=== PATIENT | female | born 1980 ===

== ENCOUNTER 2018-01-03 09:20 | Day surgery (SDC) | payer OTHER ==
[2017-12-31 13:39] VITALS: BMI 20.5
[2018-01-03] MEDS ORDERED: ACETIC ACID 3% 30 ML LIQUID MC ONE (09:51)
[2018-01-03] MEDS ORDERED: Strong Iodine Topical Sol. 5%-10% ONE (09:51)
[2018-01-03] MEDS ORDERED: cefOXitin IV 1 gm in Dextrose 0 GM/0 ML BAG IVPB ONE (09:52)
[2018-01-03] MEDS ORDERED: Ferric Subsulfate Sol(60 mL) ONE (09:52)
[2018-01-03 09:59] VITALS: RESP 18
[2018-01-03 10:15] LABS: MEAN CELL VOLUME 89.7 fl (81.0-99.0); MEAN CORPUSCULAR HGB CONC 33.4 g/dL (33.0-37.0); RBC 4.35 Mil/uL (3.80-5.20); RED CELL DISTRIBUTION WIDTH 13.2 % (11.5-14.5); WHITE BLOOD COUNT 7.1 K/uL (4.8-10.8)
[2018-01-03] MEDS ORDERED: Propofol 10 mg/ml Inj (20 ML) ONE ×2 (10:17→11:05)
[2018-01-03] MEDS ORDERED: Midazolam 2 MG/2 ML VIAL ONE (10:17)
[2018-01-03] MEDS ORDERED: Succinylcholine 200 mg/10 ml Inj IV ONE (10:17)
[2018-01-03] MEDS ORDERED: Rocuronium 10 mg/ml (5 ml) ONE (10:17)
--- NOTE | 2018-01-03 10:22 | RAD ---
HISTORY: preop COMPARISON: No prior. TECHNIQUE: Chest PA and lateral FINDINGS: LUNGS: No active pulmonary disease. PLEURA: No significant pleural effusion identified. No pneumothorax apparent. CARDIOVASCULAR: Normal. OSSEOUS STRUCTURES: No significant abnormalities. VISUALIZED UPPER ABDOMEN: Cholecystectomy clips in the right upper quadrant OTHER FINDINGS: None. IMPRESSION: No active disease.
[2018-01-03 10:26] LABS: INR 1.1 (0.9-1.2); PARTIAL THROMBOPLASTIN TIME 33.5 Seconds (25.6-37.1); PROTHROMBIN TIME 11.9 Seconds (9.8-13.1)
[2018-01-03 10:35] LABS: BLOOD UREA NITROGEN 10 mg/dl (7-17); CALCIUM 8.8 mg/dL (8.4-10.2); GFR AFRICAN-AMERICAN > 60; GFR NON-AFRICAN AMERICAN > 60
--- NOTE | 2018-01-03 11:06 | CP.PCM.HP ---
History of Present Illness - History of Present Illness History of Present Illness: 37 yo female with high grade SISI on cervical biopsy. Discussed the R/B/A of LEEP procedure with patient and patient consented. All patient questions answered. Present on Admission - Present on Admission Any Indicators Present on Admission: No History of DVT/PE: No History of Uncontrolled Diabetes: No Urinary Catheter: No Decubitus Ulcer Present: No Past Patient History - Past Medical History & Family History Past Medical History?: Yes - Past Social History Smoking Status: Smoker Currrent Status Unknown - CARDIAC Hx Cardiac Disorders: Yes Hx Hypertension: Yes - PULMONARY Hx Respiratory Disorders: Yes Hx Bronchitis: Yes - NEUROLOGICAL Hx Neurological Disorder: No - HEENT Hx HEENT Problems: No - RENAL Hx Chronic Kidney Disease: No - ENDOCRINE/METABOLIC Hx Endocrine Disorders: Yes Hx Diabetes Mellitus Type 2: Yes - HEMATOLOGICAL/ONCOLOGICAL Hx Blood Disorders: No Hx Blood Transfusions: No - INTEGUMENTARY Hx Dermatological Problems: No - MUSCULOSKELETAL/RHEUMATOLOGICAL Hx Musculoskeletal Disorders: No - GASTROINTESTINAL Hx Gastrointestinal Disorders: No - GENITOURINARY/GYNECOLOGICAL Hx Genitourinary Disorders: No - PSYCHIATRIC Hx Emotional Abuse: No Hx Physical Abuse: No - SURGICAL HISTORY Hx Surgeries: Yes Hx Cholecystectomy: Yes Other/Comment: ovarian cyst x2,cerclage - ANESTHESIA Hx Anesthesia: Yes Hx Anesthesia Reactions: No ("IV anesthesia does not work") Hx Malignant Hyperthermia: No Has any member of the family had a problem w/ anesthesia?: No Meds Allergies/Adverse Reactions: Allergies Allergy/AdvReac Type Severity Reaction Status Date / Time No Known Allergies Allergy Verified 01/03/18 10:18 Physical Exam - Constitutional Appears: Well, No Acute Distress - Head Exam Head Exam: ATRAUMATIC - Eye Exam Eye Exam: Normal appearance, PERRL - ENT Exam ENT Exam: Mucous Membranes Moist - GI/Abdominal Exam GI & Abdominal Exam: Soft. absent: Distended, Tenderness Results - Vital Signs Recent Vital Signs: Last Vital Signs Temp 97.8 F 01/03/18 09:57 Pulse 84 01/03/18 10:07 Resp 18 01/03/18 09:57 BP 114/72 01/03/18 09:57 Pulse Ox 98 01/03/18 09:57 - Labs Result Diagrams: 01/03/18 10:00 01/03/18 10:00 Labs: Laboratory Results - last 24 hr 01/03/18 01/03/1801/03/18 09:51 10:00 10:00 WBC 7.1 RBC 4.35 Hgb 13.0 Hct 39.0 MCV 89.7 MCH 30.0 MCHC 33.4 RDW 13.2 Plt Count 238 PT 11.9 INR 1.1 APTT 33.5 Sodium Potassium Chloride Carbon Dioxide Anion Gap BUN Creatinine Est GFR ( Amer) Est GFR (Non-Af Amer) POC Glucose (mg/dL) 104 Random Glucose Calcium 01/03/18 10:00 WBC RBC Hgb Hct MCV MCH MCHC RDW Plt Count PT INR APTT Sodium 141 Potassium 3.9 Chloride 108 H Carbon Dioxide 26 Anion Gap 11 BUN 10 Creatinine 0.5 L Est GFR ( Amer) > 60 Est GFR (Non-Af Amer) > 60 POC Glucose (mg/dL) Random Glucose 103 Calcium 8.8 Assessment & Plan - Assessment and Plan (Free Text) Assessment: Cervical dysplasia Plan: LEEP cone biopsy - Date & Time Date: 01/03/18 Time: 11:06
[2018-01-03] MEDS ORDERED: ePHEDrine 50 mg/ml Inj ONE (11:35)
[2018-01-03] MEDS ORDERED: Lactated Ringer's 1,000 ML IV ONE (13:30)
[2018-01-03 13:46] VITALS: PULSE 71; O2SAT 98
[2018-01-03 14:58] VITALS: BP 108/77; TEMP 98
--- NOTE | 2018-01-04 08:31 | CARD ---
APPROVED REPORT EKG Measurement Heart [id number] <Conclusion> Normal sinus rhythm Normal ECG
--- NOTE | 2018-01-04 08:35 | PCM.SURG1 ---
Surgeon's Initial Post Op Note - Surgeon's Notes Surgeon: Harris Proposal Consultant: N/A Type of Anesthesia: General LMA Pre-Operative Diagnosis: Cervical dysplasia Operative Findings: Normal appearing anatomy Post-Operative Diagnosis: Same Operation Performed: LEEP Specimen/Specimens Removed: LEEP biopsy Estimated Blood Loss: EBL {In ML}: 20 Blood Products Given: N/A Drains Used: No Drains Post-Op Condition: Good Date of Surgery/Procedure: 01/03/18 Time of Surgery/Procedure: 12:00
--- NOTE | 2018-01-04 08:37 | CP.PCM.DIS ---
Provider - Provider Attending physician: Jermain Iglesias MD Primary care physician: NO FAMILY PROVIDER Time Spent in preparation of Discharge (in minutes): 10 Diagnosis - Discharge Diagnosis (1) Cervical dysplasia Status: Acute Hospital Course - Lab Results Lab Results: Most Recent Lab Values WBC 7.1 K/uL (4.8-10.8) 01/03/18 10:00 RBC 4.35 Mil/uL (3.80-5.20) 01/03/18 10:00 Hgb 13.0 g/dL (12.0-16.0) 01/03/18 10:00 Hct 39.0 % (34.0-47.0) 01/03/18 10:00 MCV 89.7 fl (81.0-99.0) 01/03/18 10:00 MCH 30.0 pg (27.0-31.0) 01/03/18 10:00 MCHC 33.4 g/dL (33.0-37.0) 01/03/18 10:00 RDW 13.2 % (11.5-14.5) 01/03/18 10:00 Plt Count 238 K/uL (130-400) 01/03/18 10:00 PT 11.9 Seconds (9.8-13.1) 01/03/18 10:00 INR 1.1 (0.9-1.2) 01/03/18 10:00 APTT 33.5 Seconds (25.6-37.1) 01/03/18 10:00 Sodium 141 mmol/l (132-148) 01/03/18 10:00 Potassium 3.9 MMOL/L (3.6-5.0) 01/03/18 10:00 Chloride 108 mmol/L (98-107) H 01/03/18 10:00 Carbon Dioxide 26 mmol/L (22-30) 01/03/18 10:00 Anion Gap 11 (10-20) 01/03/18 10:00 BUN 10 mg/dl (7-17) 01/03/18 10:00 Creatinine 0.5 mg/dl (0.7-1.2) L 01/03/18 10:00 Est GFR ( Amer) > 60 01/03/18 10:00 Est GFR (Non-Af Amer) > 60 01/03/18 10:00 POC Glucose (mg/dL) 95 mg/dL (65-110) 01/03/18 11:51 Random Glucose 103 mg/dL (65-105) 01/03/18 10:00 Calcium 8.8 mg/dL (8.4-10.2) 01/03/18 10:00 Discharge Exam - Head Exam Head Exam: ATRAUMATIC Discharge Plan - Follow Up Plan Condition: GOOD Disposition: HOME/ ROUTINE Referrals: FAMILY PROVIDER,NO [Primary Care Provider] -
--- NOTE | 2018-01-04 20:17 | OP ---
PROCEDURE DATE: 01/03/2018 PREOPERATIVE DIAGNOSIS: Cervical dysplasia. POSTOPERATIVE DIAGNOSIS: Cervical dysplasia. OPERATION PERFORMED: LEEP, loop electrocautery excisional procedure. OPERATIVE FINDINGS: Normal appearing cervix. COMPLICATIONS: None. ESTIMATED BLOOD LOSS: Minimal. FLUID: 250 mL lactated Ringer's. SURGEON: Jermain Iglesias M.D. ANESTHESIA: General. ANESTHESIOLOGIST: . COMPLICATIONS: None. DESCRIPTION OF PROCEDURE: The patient was taken to the operating room where general anesthesia was found to be adequate. The patient was prepped and draped in normal sterile fashion in the dorsal lithotomy position. A speculum was placed into the vagina and the cervix visualized. Lateral retractors were placed in the vagina. The cervix was with an ascetic acid solution. With a loop electrocautery device, an approximately 2 cm x 1 cm biopsy was taken off the surface of the cervix. After removal of cone shaped biopsy, the surgical site was treated with electrocautery until hemostasis noted. The surgical site was treated with Monsel's solution. Area was found to be hemostatic. All instruments were removed from the patient. The patient tolerated the procedure well. All sponge, lap count, needle counts were correct x2. There were no complications. The patient was taken to recovery room in awake and stable condition. Jermain Iglesias MD
== END 2018-01-03 14:45 | disposition home or self-care (01) ==
LOC: H.OPSURG 09:20
PROVIDERS: ATTEND Obstetrics & Gynecology
DX: N87.1 Moderate cervical dysplasia (principal); E11.9 Type 2 diabetes mellitus without complications; I10 Essential (primary) hypertension
CPT/HCPCS: 36415; 57522; 71046; 80048; 82948; 85027; 85610; 85730; 88305; 88307; 93005; J0330; J1885; J2001; J2250; J2405; J2704; J3010; J7030; J7120